=== PATIENT | male | born 1975 | race Two or more races ===

== ENCOUNTER 2024-07-12 06:25 | Day surgery (SDC) | payer OTHER, SELFPAY | END 2024-07-12 11:14 | disposition home or self-care (01) | LOC: GI 06:25 | PROVIDERS: ATTENDING PHYSICIAN Student in an Organized Health Care Education/Training Program | DX: K62.5 Hemorrhage of anus and rectum (principal); K57.30 Diverticulosis of large intestine without perforation or abscess without bleeding; K64.0 First degree hemorrhoids; D12.0 Benign neoplasm of cecum; K63.5 Polyp of colon; K62.1 Rectal polyp | CPT/HCPCS: 45385; 45380; 88305 ==

== ENCOUNTER → 2024-12-11 13:26 | Outpatient (REF) | payer OTHER, SELFPAY | LOC: MRI 3T 13:26 | PROVIDERS: ATTENDING PHYSICIAN Surgery; FAMILY PHYSICIAN Family Medicine | DX: K60.30 Anal fistula, unspecified (principal) | CPT/HCPCS: 72197; A9585 ==

== ENCOUNTER 2025-01-22 06:10 | Day surgery (SDC) | payer OTHER, SELFPAY ==
[2025-01-22 12:46] VITALS: BMI 24.4
[2025-01-22 12:48] VITALS: BMI 24.4
[2025-01-22 12:49] VITALS: BP 123/66
[2025-01-22 16:41] VITALS: BP 117/67
[2025-01-22 16:45] VITALS: BP 106/54
[2025-01-22 17:00] VITALS: BP 123/83
[2025-01-22 17:15] VITALS: BP 144/79
[2025-01-22 17:24] VITALS: BP 138/78
== END 2025-01-22 17:36 | disposition home or self-care (01) ==
LOC: SDS 06:10
PROVIDERS: ATTENDING PHYSICIAN Surgery
DX: K60.30 Anal fistula, unspecified (principal)
CPT/HCPCS: 46270